=== PATIENT | female | born 1980 | race Two or more races ===

== ENCOUNTER 2018-04-21 09:10 | Observation (INO) | payer MEDICAID | END 2018-04-21 10:20 | disposition home or self-care (01) | DRG 566 | LOC: LDRP 09:10 | PROVIDERS: ADMIT Obstetrics & Gynecology; ATTEND Obstetrics & Gynecology | DX: O26.893 Other specified pregnancy related conditions, third trimester (principal); M54.9 Dorsalgia, unspecified; O09.523 Supervision of elderly multigravida, third trimester; R10.9 Unspecified abdominal pain; N89.8 Other specified noninflammatory disorders of vagina; Z3A.39 39 weeks gestation of pregnancy | CPT/HCPCS: 76815; G0378; 59025; 81002 ==

== ENCOUNTER 2018-04-27 04:45 | Inpatient (IN) | payer MEDICAID ==
[~2018-04-27] VITALS: Ht 152.4 cm; Wt 72.6 kg
[2018-04-27] VITALS (10 sets, daily range): BP systolic 100–128; BP diastolic 58–75
[2018-04-27] MEDS ORDERED: TETRACAINE 1% INJ 2 ML VIAL IJ ONE ×2 (08:58→10:45)
[2018-04-27 09:41] LABS: Urine Bacteria FEW /hpf (None Seen); Urine Blood Negative /uL (Negative); Urine Mucus FEW (None Seen); Urine Specific Gravity 1.022 (1.001-1.035); Urine WBC 4 /hpf (0 - 5)
[2018-04-27 09:52] LABS: Basophils # (auto) 0 uL; Basophils % (auto) 0.2 % (0.0-2.0); Eosinophils # (auto) 0 uL; Eosinophils % (auto) 0.5 % (0.0-7.0); Hematocrit 28.4 % (36.0-46.0); Hemoglobin 9.4 g/dL (12.2-16.2); Lymphocytes # (auto) 0.8 uL; Lymphocytes % (auto) 14.4 % (10.0-50.0); Mean Corpuscular Hemoglobin 27.2 pg (28.0-32.0); Mean Corpuscular Volume 82.5 fL (80.0-100.0); Monocytes # (auto) 0.5 uL; Monocytes % (auto) 8.4 % (0.0-12.0); Neutrophils # (auto) 4.5 uL; Neutrophils % (auto) 76.5 % (37.0-80.0); Platelet Count (auto) 176 10^3/uL (140-450); Red Blood Cells 3.44 10^6/uL (4.0-5.20); White Blood Cell 5.8 10^3/uL (4.4-10.8)
[2018-04-27 10:06] LABS: INR 0.88 (0.9-1.15); Partial Thromboplastin Time 23.1 sec (23.78-33.04); Prothrombin Time 9.5 sec (9.27-12.13)
[2018-04-27 10:07] LABS: Albumin 2.1 g/dL (3.4-5.0); Calcium 7.7 mg/dL (8.5-10.1); Potassium 4.3 mmol/L (3.5-5.1)
[2018-04-27 10:10] LABS: BUN/Creatinine Ratio 18.8
[2018-04-27 10:12] LABS: Bilirubin, Total 0.5 mg/dL (0.2-1.0); Total Protein 6.2 g/dL (6.4-8.2)
[2018-04-27] MEDS ORDERED: MORPHINE SULF(PF) 0.5MG/ML 10ML VIAL ONE (10:24)
[2018-04-27] MEDS ORDERED: ceFAZolin 1GM VL ONE (10:24)
[2018-04-27] MEDS ORDERED: PHENYLEPHRINE HCL 10 MG/ML VL ONE (10:27)
[2018-04-27] MEDS ORDERED: ePHEDrine SULFATE 50 MG/ML AMP ONE (10:27)
[2018-04-27] MEDS ORDERED: KETOROLAC TROMETH 30 MG/ML 1ML VIAL IV PRN ×2 (11:00→12:00)
[2018-04-27] MEDS ORDERED: NALOXONE HCL 0.4 MG/ML VIAL IV PRN (11:00)
[2018-04-27] MEDS ORDERED: ONDANSETRON HCL 4 MG/2 ML VIAL IV ONE (11:00)
[2018-04-27] MEDS ORDERED: HYDROmorphone HCL 2 MG/ML VL IV PRN (11:00)
[2018-04-27] MEDS ORDERED: ONDANSETRON HCL 4 MG/2 ML VIAL IV PRN ×2 (11:00→12:00)
[2018-04-27] MEDS ORDERED: diphenhdrAMINE HCL 50 MG/1 ML VL IV PRN (11:00)
[2018-04-27] MEDS ORDERED: MIDAZOLAM HCL 1MG/1ML-2 ML VIAL ONE ×2 (11:18→11:25)
[2018-04-27] MEDS ORDERED: fentaNYL CITRATE 100 MCG/2 ML VL ONE (11:31)
[2018-04-27] MEDS ORDERED: LACT. RINGERS/OXYTOCIN 20UNITS 1,000 ML IV SCH (11:56)
[2018-04-27] MEDS ORDERED: ceFAZolin 1GM/50ML 50 ML IV SCH (12:00)
[2018-04-27] MEDS ORDERED: MORPHINE SULFATE 4 MG/ML SYR/VIAL IV PRN (12:00)
[2018-04-27] MEDS ORDERED: OXYTOCIN 10UNIT/ML 1ML VIAL ONE (12:16)
[2018-04-27] MEDS ORDERED: PREN27TA7 PO (17:44)
[2018-04-27 19:48] LABS: Basophils # (auto) 0 uL; Basophils % (auto) 0.1 % (0.0-2.0); Eosinophils # (auto) 0 uL; Eosinophils % (auto) 0.2 % (0.0-7.0); Hematocrit 28.4 % (36.0-46.0); Hemoglobin 9.4 g/dL (12.2-16.2); Lymphocytes # (auto) 0.9 uL; Lymphocytes % (auto) 10.1 % (10.0-50.0); Mean Corpuscular Hemoglobin 27.2 pg (28.0-32.0); Mean Corpuscular Hgb Conc. 33.1 g/dL (32.0-36.0); Mean Corpuscular Volume 82.3 fL (80.0-100.0); Monocytes # (auto) 0.7 uL; Monocytes % (auto) 7.5 % (0.0-12.0); Neutrophils # (auto) 7.7 uL; Neutrophils % (auto) 82.1 % (37.0-80.0); Platelet Count (auto) 165 10^3/uL (140-450); Red Blood Cells 3.45 10^6/uL (4.0-5.20); White Blood Cell 9.4 10^3/uL (4.4-10.8)
[2018-04-27] MEDS: ceFAZolin 1GM/50ML 50 ML IV SCH (20:00)
[2018-04-27] MEDS ORDERED: LACTATED RINGER'S 1,000 ML IV SCH (22:44)
[2018-04-28] VITALS (7 sets, daily range): BP systolic 101–129; BP diastolic 52–78
[2018-04-28] MEDS: ceFAZolin 1GM/50ML 50 ML IV SCH ×2 (04:30→11:34)
[2018-04-28 06:31] LABS: Basophils # (auto) 0 uL; Basophils % (auto) 0.2 % (0.0-2.0); Eosinophils # (auto) 0 uL; Eosinophils % (auto) 0.1 % (0.0-7.0); Hematocrit 30.1 % (36.0-46.0); Lymphocytes # (auto) 0.7 uL; Lymphocytes % (auto) 7.6 % (10.0-50.0); Mean Corpuscular Hemoglobin 27.4 pg (28.0-32.0); Mean Corpuscular Hgb Conc. 33.3 g/dL (32.0-36.0); Mean Corpuscular Volume 82.1 fL (80.0-100.0); Monocytes # (auto) 0.8 uL; Neutrophils % (auto) 84.1 % (37.0-80.0); Nucleated Red Blood Cells % 0.1 %; Platelet Count (auto) 179 10^3/uL (140-450); Red Blood Cells 3.66 10^6/uL (4.0-5.20); Red Cell Distribution Width 16.3 % (11.8-14.3); White Blood Cell 9.5 10^3/uL (4.4-10.8)
[2018-04-28] MEDS ORDERED: LACTATED RINGER'S 1,000 ML IV SCH ×2 (08:16→08:52)
[2018-04-28] MEDS ORDERED: HYDROcodone-ACET 5/325MG TAB PO PRN (08:30)
[2018-04-28] MEDS ORDERED: SIMETHICONE 80 MG CHEWABLE TABLET PO PRN (08:30)
[2018-04-28] MEDS: DOCUSATE SOD 100 MG CAP PO SCH ×2 (10:25→21:48)
[2018-04-28] MEDS: HYDROcodone-ACET 5/325MG TAB PO PRN ×2 (10:26→19:06)
[2018-04-28] MEDS: IBUPROFEN 800 MG TAB PO PRN ×2 (12:57→23:33)
[2018-04-29 03:15] VITALS: BP 121/86
[2018-04-29 06:45] VITALS: BP 120/62
[2018-04-29] MEDS: IBUPROFEN 800 MG TAB PO PRN (09:45)
[2018-04-29] MEDS: DOCUSATE SOD 100 MG CAP PO SCH (09:46)
[2018-04-29 11:30] VITALS: BP 114/96
[2018-04-30 05:06] LABS: RPR Non Reactive (Non Reactive)
== END 2018-04-29 12:00 | disposition home or self-care (01) | DRG 540 ==
LOC: LDRP 04:45
PROVIDERS: ADMIT Obstetrics & Gynecology; ATTEND Obstetrics & Gynecology
PROC: 0UL70CZ Occlusion of Bilateral Fallopian Tubes with Extraluminal Device, Open Approach (ICD-10-PCS; 2018-04-27)
PROC: 10D00Z1 Extraction of Products of Conception, Low, Open Approach (ICD-10-PCS; principal; 2018-04-27 10:44)
DX: O34.211 Maternal care for low transverse scar from previous cesarean delivery (principal); Z30.2 Encounter for sterilization; Z37.0 Single live birth; Z3A.38 38 weeks gestation of pregnancy
CPT/HCPCS: 36415; 51702; 59025; 80053; 81001; 85025; 85610; 85730; 86592; 86850; 86900; 86901; 96361; 96365; 96366; 96374; 96375; J0690; J1885; J2250